=== PATIENT | female | born 1950 | race Caucasian/White ===

== ENCOUNTER → 2019-01-20 | Outpatient (CLI) | payer MEDICARE, OTHER ==
[2019-01-20 15:27] VITALS: BP 162/72; PULSE 86; RESP 16; TEMP 99.3; BMI 47.3
--- NOTE | 2019-01-23 10:58 | P.HPBAR ---
Bariatric H&P - History & Physicial H&P Date: 01/20/19 History & Physicial: Visit/CC: Band Adj Patient initial contact: Initial weight: Initial weight in pounds: Height: 5 ft 4.5 in Initial BMI: Last weight: Current weight: 127.006 kg Current weight in pounds: 280.00 Current BMI: 47.3 [place] body weight (based on NIH guidelines): 55.565 kg Excess body weight loss: The patient is a 68 year-old F who presents for Bariatric Assessment. Patient presents today for lap band adjustment. She has complaints of some dysphagia. Past Medical History Past Medical History: Asthma, Diabetes Mellitus, Osteoarthritis (OA) History of Any Multi-Drug Resistant Organisms: None Reported Past Surgical History: Bariatric Surgery, Cholecystectomy, Joint Replacement, Tubal Ligation Additional Past Surgical History / Comment(s): RI KNEE REPLACEMENT LAP BAND 2007 Past Anesthesia/Blood Transfusion Reactions: No Reported Reaction Smoking Status: Former smoker Surgical - Exam Vital Signs Temp Pulse Resp BP 99.3 F 86 16 162/72 01/20/19 15:20 01/20/19 15:20 01/20/19 15:20 01/20/19 15:20 - General well developed - Abdomen Abdomen: soft, non tender Bariatric Assessment & Plan Plan: Patient's lap band was adjusted. She had 4 mL removed from her band. She currently is 0 in the band. She'll follow-up in one month. Bariatric Checklist Checklist: Plan: Checklist: EGD: 1. Hiatal hernia: 2. H. Pylori: HgbA1c: Vitamin D: Smoking: Former smoker Primary care physician referral: Psychiatry clearance: Cardiology clearance: Sleep study: Diet journal: VTE risk score: VTE risk level: Rehab needs at discharge:
== END | disposition home or self-care (01) ==
LOC: BARWHC3 14:37
PROVIDERS: ATTEND Surgery
DX: Z46.51 Encounter for fitting and adjustment of gastric lap band (principal); R13.10 Dysphagia, unspecified; Z87.891 Personal history of nicotine dependence; Z98.84 Bariatric surgery status; Z90.49 Acquired absence of other specified parts of digestive tract; Z98.51 Tubal ligation status
CPT/HCPCS: 99212

== ENCOUNTER → 2019-03-03 | Outpatient (CLI) | payer MEDICARE, OTHER ==
[2019-03-03 16:21] LABS: Basophils # (A) 0.1 k/uL (0-0.2); Basophils % (A) 0 %; Eosinophils # (A) 0.4 k/uL (0-0.7); Eosinophils % (A) 3 %; HCT 42.2 % (34.0-46.0); HGB 13.7 gm/dL (11.4-16.0); Lymphocytes # (A) 3.2 k/uL (1.0-4.8); Lymphocytes % (A) 23 %; MCH 28.4 pg (25.0-35.0); MCHC 32.4 g/dL (31.0-37.0); MCV 87.8 fL (80.0-100.0); Mean Platelet Volume 6.7; Monocytes # (A) 0.6 k/uL (0-1.0); Monocytes % (A) 5 %; Neutrophils % (A) 66 %; Platelet Count 310 k/uL (150-450); RBC 4.81 m/uL (3.80-5.40); RDW 13.8 % (11.5-15.5); WBC 13.6 k/uL (3.8-10.6)
[2019-03-04 00:25] LABS: African American GFR (CKD) 103.9 (60.0-200.0); Albumin/Globulin Ratio 1.67 (1.60-3.17); Anion Gap 8.2 mmol/L (4.00-12.00); BUN/Creat Ratio 22.86 Ratio (12.00-20.00); Calcium 9.5 mg/dL (8.7-10.3); Carbon Dioxide 28.8 mmol/L (21.6-31.8); Globulin 2.4 g/dL (1.6-3.3); Potassium 4.7 mmol/L (3.5-5.5); Total Bilirubin 0.3 mg/dL (0.2-1.2); Total Protein 6.4 g/dL (6.2-8.2)
== END | disposition home or self-care (01) ==
LOC: LABWHC1 15:10
PROVIDERS: ATTEND Surgery
DX: Z01.818 Encounter for other preprocedural examination (principal); Z01.812 Encounter for preprocedural laboratory examination
CPT/HCPCS: 36415; 80053; 85025; 93005

== ENCOUNTER → 2019-03-03 | Outpatient (CLI) | payer MEDICARE, OTHER ==
[2019-03-03 15:40] VITALS: BP 164/78; PULSE 99; RESP 16; TEMP 97.6; BMI 45.9
--- NOTE | 2019-03-03 16:21 | P.HPBAR ---
Bariatric H&P - History & Physicial H&P Date: 03/03/19 History & Physicial: Visit/CC: Wand Band Removed Patient initial contact: Initial weight: 127.006 kg Initial weight in pounds: 280.00 Height: 5 ft 4.5 in Initial BMI: 47.3 Last weight: Current weight: 123.377 kg Current weight in pounds: 272.00 Current BMI: 45.9 [place] body weight (based on NIH guidelines): 55.565 kg Excess body weight loss: 5.0% The patient is a 68 year-old F who presents for Bariatric Assessment. Patient presents today for removal of her LAP-BAND. She's had chronic issues with dysphagia. She was sent her band removed. Past Medical History Past Medical History: Asthma, Diabetes Mellitus, Osteoarthritis (OA) History of Any Multi-Drug Resistant Organisms: None Reported Past Surgical History: Bariatric Surgery, Cholecystectomy, Joint Replacement, Tubal Ligation Additional Past Surgical History / Comment(s): RI KNEE REPLACEMENT LAP BAND 2007 Past Anesthesia/Blood Transfusion Reactions: No Reported Reaction Past Psychological History: No Psychological Hx Reported Smoking Status: Former smoker Past Alcohol Use History: None Reported, Occasional Additional Past Alcohol Use History / Comment(s): QUIT SMOKING 2007 Past Drug Use History: None Reported Surgical - Exam Vital Signs Temp Pulse Resp BP 97.6 F 99 16 164/78 03/03/19 15:35 03/03/19 15:35 03/03/19 15:35 03/03/19 15:35 - General well developed, well nourished, no distress - Eyes PERRL - ENT normal pinna - Neck no masses - Respiratory normal expansion - Cardiovascular Rhythm: regular - Abdomen Abdomen: soft, non tender Bariatric Assessment & Plan Plan: Chronic dysphagia. Patient will have her LAP-BAND removed. Bariatric Checklist Checklist: Plan: Checklist: EGD: 1. Hiatal hernia: 2. H. Pylori: HgbA1c: Vitamin D: Smoking: Former smoker Primary care physician referral: Psychiatry clearance: Cardiology clearance: Sleep study: Diet journal: VTE risk score: VTE risk level: Rehab needs at discharge:
== END | disposition home or self-care (01) ==
LOC: BARWHC3 13:43
PROVIDERS: ATTEND Surgery
DX: Z09 Encounter for follow-up examination after completed treatment for conditions other than malignant neoplasm (principal); Z98.84 Bariatric surgery status; E66.01 Morbid (severe) obesity due to excess calories; R13.10 Dysphagia, unspecified; Z68.42 Body mass index [BMI] 45.0-49.9, adult
CPT/HCPCS: 99211

== ENCOUNTER 2019-03-17 07:28 | Day surgery (SDC) | payer MEDICARE, OTHER ==
[2019-03-13 15:54] VITALS: BMI 46.7
[~2019-03-17 07:28] MED LIST: DEXAMETHASONE SOD PHOSPHATE 10 MG/ML 1 ML VIAL IV ONE; LACTATED RINGERS 1,000 ML IV SCH; LIDOCAINE 1% 20 ML VIAL (10MG/ML) FOR IV START INTRADERMA PRN; MIDAZOLAM 2 MG/2 ML VIAL IV PRN; ONDANSETRON 4 MG/2 ML VIAL IVP ONE; ceFAZolin 3 GM in SODIUM CHLORIDE 0.9% 100 ML IVPB ONE; fentaNYL (PF) 50 MCG/ML 2 ML AMP IV PRN
[2019-03-17] MEDS ORDERED: INSULIN ASPART (NovoLOG) 100 UNIT/ML VIAL SQ ONE (08:13)
[2019-03-17] MEDS ORDERED: ONDANSETRON 4 MG/2 ML VIAL IVP ONE (08:14)
[2019-03-17 08:21] LABS: Glucose,Whole Blood 204 mg/dL (75-99)
[2019-03-17] MEDS ORDERED: HEPARIN SODIUM,PORCINE 5,000 UNIT/ML 1 ML VIAL SQ ONE (08:24)
--- NOTE | 2019-03-17 08:25 | P.GSHP ---
History of Present Illness H&P Date: 03/17/19 Chief Complaint: Dysphagia This is a 68-year-old female who presents today for removal of LAP-BAND. Patient's had trouble dysphagia. She requested to have her band removed. Past Medical History Past Medical History: Asthma, Diabetes Mellitus, GERD/Reflux, Osteoarthritis (OA) History of Any Multi-Drug Resistant Organisms: None Reported Past Surgical History: Bariatric Surgery, Cholecystectomy, Joint Replacement, Tubal Ligation Additional Past Surgical History / Comment(s): RI KNEE REPLACEMENT, LAP BAND 2007 Past Anesthesia/Blood Transfusion Reactions: Previous Problems w/ Anesthesia Additional Past Anesthesia/Blood Transfusion Reaction / Comment(s): had problem after knee replacement, stopped breathing in recovery room, believes it might have been due to a pain rx but not sure Smoking Status: Former smoker - Past Family History Mother Family Medical History: No Reported History Medications and Allergies Home Medications Medication Instructions Recorded Confirmed Type Celecoxib [CeleBREX] 200 mg PO DAILY 01/20/19 03/17/19 History Diclofenac Sodium [Voltaren Gel] 1 applic TOPICAL DIRECTED PRN 01/20/19 03/17/19 History Insulin Aspart [NovoLOG] See Protocol SQ TID 01/20/19 03/17/19 History Insulin NPH/Reg Insulin 70/30 33 unit SQ BID 01/20/19 03/17/19 History [humuLIN 70/30 VIAL] Loratadine [Claritin] 10 mg PO DAILY PRN 01/20/19 03/17/19 History Multivitamin [Multivitamins Adult 1 tab PO DAILY 01/20/19 03/17/19 History Gummies] Albuterol Inhaler [Ventolin Hfa 1 - 2 puff INHALATION RT-Q6H PRN 03/13/19 03/17/19 History Inhaler] Allergies Allergy/AdvReac Type Severity Reaction Status Date / Time bee venom protein (honey bee) Allergy Rash/Hives Verified 03/17/19 07:39 Surgical - Exam Vital Signs Temp Pulse Resp BP Pulse Ox 98.5 F 92 18 158/74 95 03/17/19 07:54 03/17/19 07:54 03/17/19 07:54 03/17/19 07:54 03/17/19 07:54 - General well developed, well nourished, no distress - ENT normal pinna - Neck no masses - Respiratory normal expansion - Cardiovascular Rhythm: regular - Abdomen Abdomen: soft, non tender Results - Labs Abnormal Lab Results - Last 24 Hours (Table) 03/17/19 Range/Units 08:04 POC Glucose (mg/dL) 204 H (75-99) mg/dL Assessment and Plan Assessment: Dysphagia Morbid obesity, BMI 47 We will perform removal of of LAP-BAND system.
[2019-03-17 08:33] LABS: Glucose,Whole Blood 192 mg/dL (75-99)
[2019-03-17] MEDS ORDERED: PROPOFOL 10 MG/ML 20 ML VIAL IV ONE (08:57)
[2019-03-17] MEDS ORDERED: MIDAZOLAM 2 MG/2 ML VIAL ONE (08:57)
[2019-03-17] MEDS ORDERED: SUCCINYLCHOLINE CHLORIDE 100 MG/5 ML SYR IV ONE (08:57)
[2019-03-17] MEDS ORDERED: fentaNYL (PF) 50 MCG/ML 2 ML AMP ONE (08:57)
[2019-03-17] MEDS ORDERED: ROCURONIUM BROMIDE 10 MG/ML 10 ML VIAL IV ONE (08:57)
[2019-03-17] MEDS ORDERED: LIDOCAINE 1% INJ 10MG/ML (20 ML MDV) ONE (08:57)
[2019-03-17] MEDS ORDERED: GLYCOPYRROLATE 0.2 MG/ML 2 ML VIAL ONE (08:57)
[2019-03-17] MEDS ORDERED: NEOSTIGMINE 1 MG/ML 10 ML VIAL ONE (08:57)
[2019-03-17] MEDS ORDERED: BUPIVACAINE (PF) 0.25% 30 ML VIAL SQ ONE (09:21)
[2019-03-17] MEDS ORDERED: LACTATED RINGERS 1,000 ML IV ONE ×2 (09:48)
[2019-03-17 10:22] VITALS: TEMP 97.3
--- NOTE | 2019-03-17 10:28 | P.OP ---
Date of Procedure: 03/17/19 Preoperative Diagnosis: GERD Dysphagia Postoperative Diagnosis: GERD Dysphagia Procedure(s) Performed: Laparoscopic removal of LAP-BAND system Anesthesia: IESHA Surgeon: Ignacio Angelo Estimated Blood Loss (ml): 5 Pathology: none sent Condition: stable Disposition: PACU Description of Procedure: Patient's placed on the operative table in the supine position. She received general anesthesia. She was then placed in dorsal lithotomy position. Her abdomen was prepped and draped usual sterile fashion. The skin was size at the incision sites. And then using 11 blade the skin was incised at the port site. Then using blunt and sharp dissection with cautery the LAP-BAND port was dissected free from some taste tissues. The PEG tube was then cut and the port was withdrawn. Using a 5 mm optical trocar under direct visualization the peritoneal Cavity is entered. After adequate insufflation the laparoscope was placed back into the peritoneal cavity. The abdomen was insufflated and then a 5 mm trochars placed in the right upper quadrant and then the left lateral lobe of liver was retracted. Next a 5 mm trocar was placed in the right lateral position and another 5 mm trochars placed in the left lateral position and a 8 mm trochars placed in the left periumbilical area and the original 5 mm trocar was exchanged for a 15 mm trocar. The adhesions Cody device and then cut and then dissected using left cautery. The lap band buckle was then dissected free. The LAP-BAND was then cut Buckle of the band was withdrawn from around stomach. There is no injury to the stomach or esophagus. Stomach was insufflated with 1000 mL of methylene blue normal saline. There is no evidence of any extravasation. This point the LAP- BAND device is brought up through the 15 mm trocar site. The abdomen was irrigated there is no bleeding seen. The trochars withdrawn. Skin was closed interrupted 3-0 Monocryl suture. Dermabond was applied. Patient top she will was sent to recovery room stable condition..
[2019-03-17] MEDS: HYDROmorphone 0.5 MG/0.5 ML SYRINGE IVP PRN ×4 (10:39→11:02)
[2019-03-17] MEDS ORDERED: diphenhydrAMINE 50 MG/ML 1 ML VIAL IVP ONE ×2 (10:41→11:05)
[2019-03-17 11:31] LABS: Glucose,Whole Blood 196 mg/dL (75-99)
[2019-03-17 12:24] VITALS: BP 150/67; PULSE 76; RESP 16
== END 2019-03-17 12:52 | disposition home or self-care (01) ==
LOC: OR 07:28
PROVIDERS: ATTEND Surgery
DX: K95.09 Other complications of gastric band procedure (principal); R13.10 Dysphagia, unspecified; J45.909 Unspecified asthma, uncomplicated; E11.9 Type 2 diabetes mellitus without complications; K21.9 Gastro-esophageal reflux disease without esophagitis; G47.33 Obstructive sleep apnea (adult) (pediatric); M19.90 Unspecified osteoarthritis, unspecified site; Z98.51 Tubal ligation status; Z96.651 Presence of right artificial knee joint; Z87.891 Personal history of nicotine dependence; Z79.4 Long term (current) use of insulin; Z79.899 Other long term (current) drug therapy; Z91.030 Bee allergy status
CPT/HCPCS: 43774; J2250; J1200; J1644; J2710; J0690; J2405; J2001; J3010; J0330; J2704; J1170